=== PATIENT | male | born 1965 | race Caucasian/White ===

== ENCOUNTER 2018-03-16 21:19 | Emergency (ER) | payer MEDICAID ==
[~2018-03-16] VITALS: Ht 170.2 cm; Wt 59.4 kg
[2018-03-16 21:43] VITALS: Ht 170.2 cm; Wt 59.4 kg
[2018-03-16 22:48] VITALS: BP 128/67
== END 2018-03-16 22:49 | disposition home or self-care (01) ==
LOC: ED 21:19
DX: G62.9 Polyneuropathy, unspecified (principal); Z90.09 Acquired absence of other part of head and neck
CPT/HCPCS: J1885